=== PATIENT | male | born 1985 | race Hispanic/Latino ===

== ENCOUNTER 2018-10-16 03:39 | Emergency (ER) | payer BC ==
--- NOTE | 2018-10-16 03:53 | ER ---
Nurse's Notes [facility] Name: Jaden Rawls Jr Age: 33 yrs Sex: Male : 1985 Arrival Date: 10/16/2018 Time: 03:43 Bed 17 Private MD: Clifford Yousif R Diagnosis: Laceration of extensor muscle, fascia and tendon of other and unspecified finger at forearm level Presentation: 10/16 03:47 Presenting complaint: Patient states: he was trying to make a sandwich and accidentally aa1 cut his L pinky finger with a knife. Small laceration noted to tip of L pinky with bleeding controlled. Transition of care: patient was not received from another setting of care. Onset of symptoms was October 16, 2018. Risk Assessment: Do you want to hurt yourself or someone else? Patient reports no desire to harm self or others. Initial Sepsis Screen: Does the patient meet any 2 criteria? No. Patient's initial sepsis screen is negative. Does the patient have a suspected source of infection? No. Patient's initial sepsis screen is negative. Care prior to arrival: None. 03:47 Method Of Arrival: Ambulatory aa1 03:47 Acuity: LEAH 4 aa1 Triage Assessment: 03:47 General: Appears in no apparent distress. comfortable, Behavior is calm, cooperative, aa1 appropriate for age. Historical: - Allergies: 03:53 No Known Allergies; aa1 - Home Meds: 03:53 Prozac Oral [Active]; aa1 - PMHx: 03:53 Anxiety; aa1 - PSHx: 03:53 None; aa1 - Immunization history:: Last tetanus immunization: up to date. - Social history:: Smoking status: Patient uses tobacco products, denies chronic smoking, but will smoke occasionally. - Ebola Screening: : No symptoms or risks identified at this time. Screenin:50 Abuse screen: Denies threats or abuse. Denies injuries from another. Nutritional rr5 screening: No deficits noted. Tuberculosis screening: No symptoms or risk factors identified. Fall Risk None identified. Total Valentin Fall Scale indicates No Risk (0-24 pts). Assessment: 03:50 General: Appears in no apparent distress. comfortable, Behavior is calm, cooperative, rr5 appropriate for age. Pain: Complains of pain in palmar aspect of distal phalanx of left little finger Pain does not radiate. Pain currently is 8 out of 10 on a pain scale. Quality of pain is described as aching, Pain began suddenly, Is intermittent. Neuro: Level of Consciousness is awake, alert, obeys commands, Oriented to person, place, time, situation, Appropriate for age. Cardiovascular: Capillary refill < 3 seconds Patient's skin is warm and dry. Respiratory: Airway is patent Respiratory effort is even, unlabored, Respiratory pattern is regular, symmetrical. GI: No signs and/or symptoms were reported involving the gastrointestinal system. : No signs and/or symptoms were reported regarding the genitourinary system. EENT: No signs and/or symptoms were reported regarding the EENT system. Derm: Skin is intact, Skin temperature is warm Wound noted palmar aspect of distal phalanx of left little finger Wound is superficial cut wound. Musculoskeletal: Circulation, motion, and sensation intact. Capillary refill < 3 seconds. 03:50 Injury Description: Laceration sustained to palmar aspect of distal phalanx of left rr5 little finger is clean, superficial, 0.5 to 2.5 cm long, not bleeding. 04:00 Reassessment: Patient appears in no apparent distress at this time. Patient is alert, rr5 oriented x 3, equal unlabored respirations, skin warm/dry/pink. discharge instruction given and explained without complaints made. Vital Signs: 03:47 BP 115 / 79; Pulse 96; Resp 20; Temp 98.5; Pulse Ox 97% on R/A; Weight 68.04 kg; Height aa1 5 ft. 4 in. (162.56 cm); Pain 8/10; 03:47 Body Mass Index 25.75 (68.04 kg, 162.56 cm) aa1 ED Course: 03:43 Patient arrived in ED. am2 03:44 Clifford Yousif MD is Private Physician. am2 03:45 Kenneth Polo MD is Attending Physician. tw4 03:47 Arm band placed on right wrist. aa1 03:50 Rashad Ruth RN is Primary Nurse. rr5 03:50 Patient has correct armband on for positive identification. Bed in low position. Call rr5 light in reach. 03:50 Assist provider with laceration repair on palmar aspect of distal phalanx of left rr5 little finger that was 2.5 cm. or less using Steri-strips. Set up tray. Performed by Kenneth Polo MD Patient tolerated well. 03:51 Triage completed. aa1 03:52 Clifford Yousif MD is Referral Physician. tw4 04:00 Patient did not have IV access during this emergency room visit. rr5 Administered Medications: No medications were administered Outcome: 03:53 Discharge ordered by . tw4 04:00 Discharged to home ambulatory. rr5 04:00 Condition: stable 04:00 Discharge instructions given to patient, Instructed on discharge instructions, follow up and referral plans. Demonstrated understanding of instructions, follow-up care. 04:05 Patient left the ED. rr5 Signatures: Leonela Leal, RN RN aa1 Erna Self am2 Kenneth Polo MD MD tw4 Rashad Ruth RN RN rr5
--- NOTE | 2018-10-16 03:53 | EDPHYS ---
Physician Documentation [facility] Name: Jaden Rawls Jr Age: 33 yrs Sex: Male : 1985 Arrival Date: 10/16/2018 Time: 03:43 Bed 17 Private MD: Clifford Yousif R ED Physician Kenneth Polo HPI: 10/16 03:46 This 33 yrs old Male presents to ER via Unassigned with complaints of Finger tw4 Injury. 03:46 Trauma demographics: County: The injury occurred in [place] Location of Injury: The tw4 injury occurred at home. 03:46 The patient or guardian reports injury, pain. The complaints affect the palmar aspect tw4 of distal phalanx of left little finger. Context: The problem was sustained at home. Onset: The symptoms/episode began/occurred today. Modifying factors: The symptoms are alleviated by pressure to area, the symptoms are aggravated by nothing. The patient has not experienced similar symptoms in the past. Historical: - Allergies: 03:53 No Known Allergies; aa1 - Home Meds: 03:53 Prozac Oral [Active]; aa1 - PMHx: 03:53 Anxiety; aa1 - PSHx: 03:53 None; aa1 - Immunization history:: Last tetanus immunization: up to date. - Social history:: Smoking status: Patient uses tobacco products, denies chronic smoking, but will smoke occasionally. - Ebola Screening: : No symptoms or risks identified at this time. ROS: 03:46 Constitutional: Negative for fever, chills, and weight loss, Eyes: Negative for injury, tw4 pain, redness, and discharge, Cardiovascular: Negative for chest pain, palpitations, and edema, Respiratory: Negative for shortness of breath, cough, wheezing, and pleuritic chest pain, Abdomen/GI: Negative for abdominal pain, nausea, vomiting, diarrhea, and constipation, Back: Negative for injury and pain, Neuro: Negative for headache, weakness, numbness, tingling, and seizure. 03:46 MS/extremity: Positive for injury or acute deformity, pain. Exam: 03:46 Constitutional: This is a well developed, well nourished patient who is awake, alert, tw4 and in no acute distress. Head/Face: Normocephalic, atraumatic. 03:46 Musculoskeletal/extremity: Extremities: noted in the palmar aspect of distal phalanx of left little finger: laceration. Vital Signs: 03:47 BP 115 / 79; Pulse 96; Resp 20; Temp 98.5; Pulse Ox 97% on R/A; Weight 68.04 kg; Height aa1 5 ft. 4 in. (162.56 cm); Pain 8/10; 03:47 Body Mass Index 25.75 (68.04 kg, 162.56 cm) aa1 Laceration: 03:55 Wound Repair of 1cm ( 0.4in ) subcutaneous laceration to palmar aspect of distal tw4 phalanx of left little finger. Distal neuro/vascular/tendon intact. Skin closed with 1 1-0 Adhesive skin closure using simple sutures and sterile technique. Dressed with bandaid. Patient tolerated well. MDM: 03:45 Patient medically screened. tw4 03:57 Differential diagnosis: dislocation, open fracture, closed fracture. Data reviewed: tw4 vital signs, nurses notes. Data interpreted: Pulse oximetry: Interpretation: normal. Counseling: I had a detailed discussion with the patient and/or guardian regarding: the historical points, exam findings, and any diagnostic results supporting the discharge/admit diagnosis. Special discussion: I discussed with the patient/guardian in detail that at this point there is no indication for admission to the hospital. It is understood, however, that if the symptoms persist or worsen the patient needs to return immediately for re-evaluation. Administered Medications: No medications were administered Disposition: 10/16/18 03:53 Discharged to Home. Impression: Laceration of extensor muscle, fascia and tendon of other and unspecified finger at forearm level. - Condition is Stable. - Discharge Instructions: Laceration Care, Adult. - Medication Reconciliation Form, Thank You Letter, Antibiotic Education, Prescription Opioid Use form. - Follow up: Clifford Yousif MD; When: Upon discharge from the Emergency Department; Reason: If symptoms return, Recheck today's complaints, Continuance of care. - Problem is new. - Symptoms have improved. Signatures: Leonela Leal RN RN aa1 Kenneth Polo MD MD tw4 Rashad Ruth RN RN rr5 Corrections: (The following items were deleted from the chart) 04:05 03:53 10/16/2018 03:53 Discharged to Home. Impression: Laceration of extensor muscle, rr5 fascia and tendon of other and unspecified finger at forearm level. Condition is Stable. Forms are Medication Reconciliation Form, Thank You Letter, Antibiotic Education, Prescription Opioid Use. Follow up: Clifford Yousif; When: Upon discharge from the Emergency Department; Reason: If symptoms return, Recheck today's complaints, Continuance of care. Problem is new. Symptoms have improved. tw4
== END 2018-10-16 04:05 | disposition home or self-care (01) ==
LOC: ER 03:39
PROC: 0JQK0ZZ Repair Left Hand Subcutaneous Tissue and Fascia, Open Approach (ICD-10-PCS; principal; 2018-10-16)
DX: S61.215A Laceration without foreign body of left ring finger without damage to nail, initial encounter (principal); X58.XXXA Exposure to other specified factors, initial encounter; Y93.9 Activity, unspecified; Y92.009 Unspecified place in unspecified non-institutional (private) residence as the place of occurrence of the external cause; F41.9 Anxiety disorder, unspecified; Z72.0 Tobacco use
CPT/HCPCS: 99283

== ENCOUNTER 2020-06-25 19:37 | Emergency (ER) | payer BC, SELFPAY ==
--- NOTE | 2020-06-25 20:19 | ER ---
Nurse's Notes [facility] Name: Jaden Rawls Jr Age: 35 yrs Sex: Male : 1985 Arrival Date: 06/25/2020 Time: 19:44 Bed Waiting Private MD: Diagnosis: ED Course: 06/25 19:44 Patient arrived in ED. ag3 20:18 Patient's name was called from ER lobby. No response. Unable to locate patient. Will ca1 disposition as left without being seen by a provider. Administered Medications: No medications were administered Outcome: 20:19 Patient left the ED. ca1 Signatures: May Major ag3 Rox Morrison RN RN ca1
== END 2020-06-25 20:19 | disposition left against medical advice (07) ==
LOC: ER 19:37
DX: R69 Illness, unspecified (principal); Z53.21 Procedure and treatment not carried out due to patient leaving prior to being seen by health care provider

== ENCOUNTER 2020-06-26 12:06 | Emergency (ER) | payer SELFPAY ==
[2020-06-26] MEDS ORDERED: METOCLOPRAMIDE 10 MG/2mL INJ ONE (13:30)
[2020-06-26] MEDS ORDERED: ONDANSETRON 4 MG/2 ML VIAL ONE (13:32)
[2020-06-26] MEDS ORDERED: DIAZEPAM 10 MG/2 ML INJ SYRINGE ONE ×2 (13:32→14:02)
[2020-06-26] MEDS ORDERED: NA CHLORIDE 0.9% 1,000 ML ONE (13:32)
[2020-06-26 13:42] LABS: Absolute Lymphocytes (CBC) 0.6 K/uL (0.7-4.9); Basophils % 0.7 % (0-1.3); Hematocrit 40.2 % (39.6-49.0); Lymphocytes % 7.3 % (15.3-44.8); MPV 7.6 fL (7.6-11.3); RBC Red Blood Cell Count 4.48 M/uL (4.33-5.43)
[2020-06-26 14:00] LABS: Urine Blood Negative (Negative); Urine Glucose Negative (Negative); Urine Protein 2+ (Negative); Urine Specific Gravity >=1.030 (1.005-1.030); Urine pH 5.5 (5.0-7.0)
[2020-06-26 14:08] LABS: Bilirubin Direct 0.2 mg/dL (0-0.2); Bilirubin Total 0.5 mg/dL (0.2-1.0); Potassium 3.7 mmol/L (3.5-5.1)
[2020-06-26 14:43] LABS: Blood Morphology Comment NOT SEEN (NOT SEEN); Platelet Estimate ADEQ; White Blood Cell Scan OK (OK)
[2020-06-26] MEDS ORDERED: PROMETHAZINE INJ 25 MG/ML AMP ONE (17:50)
--- NOTE | 2020-06-26 18:29 | ER ---
Nurse's Notes [facility] Name: Jaden Rawls Jr Age: 35 yrs Sex: Male : 1985 Arrival Date: 06/26/2020 Time: 12:10 Bed 30 Private MD: Diagnosis: Vomiting Presentation: 06/26 12:36 Chief complaint: Patient states: N/V since yesterday, denies abd pain or fever, reports em feeling hot, not tolerating fluids or food. Coronavirus screen: Client denies travel out of the [place] in the last 14 days. Ebola Screen: Patient negative for fever greater than or equal to 101.5 degrees Fahrenheit, and additional compatible Ebola Virus Disease symptoms Patient denies exposure to infectious person. Patient denies travel to an Ebola-affected area in the 21 days before illness onset. No symptoms or risks identified at this time. Initial Sepsis Screen: Does the patient meet any 2 criteria? HR > 90 bpm. Does the patient have a suspected source of infection? No. Patient's initial sepsis screen is negative. Risk Assessment: Do you want to hurt yourself or someone else? Patient reports no desire to harm self or others. Onset of symptoms was June 26, 2020. 12:36 Method Of Arrival: Ambulatory em 12:36 Acuity: LEAH 3 em Historical: - Allergies: 12:38 No Known Allergies; em - PMHx: 12:38 Anxiety; GERD; em - PSHx: 12:38 None; em - Immunization history:: Adult Immunizations up to date. - Social history:: Smoking status: Reported history of juuling and/or vaping. Screenin:02 Abuse screen: Denies threats or abuse. Nutritional screening: No deficits noted. kg Tuberculosis screening: No symptoms or risk factors identified. Fall Risk None identified. Assessment: 13:51 General: Appears uncomfortable, Behavior is calm, cooperative, appropriate for age, kg restless. Pain: Complains of pain in left inner thigh and left upper thigh Pain radiates to left leg Pain currently is 7 out of 10 on a pain scale. at worst was 7 out of 10 on a pain scale. level that patient reports is acceptable is 5 out of 10 on a pain scale. Quality of pain is described as sharp, shooting. 14:01 Neuro: No deficits noted. Cardiovascular: No deficits noted. Respiratory: No deficits kg noted. GI: Pt is actively vomiting clear fluid, Reports nausea, vomiting. : No deficits noted. EENT: No deficits noted. Derm: No deficits noted. Musculoskeletal: No deficits noted. 15:00 Reassessment: Patient appears in no apparent distress at this time. Patient and/or hb family updated on plan of care and expected duration. Pain level reassessed. Patient is alert, oriented x 3, equal unlabored respirations, skin warm/dry/pink. 16:00 Reassessment: Patient appears in no apparent distress at this time. Patient and/or hb family updated on plan of care and expected duration. Pain level reassessed. Patient is alert, oriented x 3, equal unlabored respirations, skin warm/dry/pink. 16:31 Reassessment: Pt drank two glasses of water and ate a popsicle and tolerated well with kg no complaints.. 17:08 Reassessment: Pt called out stating that he is getting nauseated again. Provider kg notifed. Vital Signs: 12:36 BP 119 / 101; Pulse 109; Resp 20; Temp 99.0(O); Pulse Ox 98% on R/A; Weight 79.38 kg; em Height 5 ft. 4 in. (162.56 cm); Pain 0/10; 14:45 BP 136 / 94; Pulse 91; Resp 18; Pulse Ox 100% ; kg 15:45 BP 139 / 91; Pulse 78; Resp 18; Pulse Ox 100% on R/A; kg 16:20 BP 135 / 89; Pulse 105; Resp 17; Pulse Ox 97% on R/A; hb 17:10 BP 138 / 99; Pulse 88; Resp 18; Pulse Ox 100% ; kg 18:54 BP 139 / 92; Pulse 83; Resp 18; Pulse Ox 98% on R/A; kg 12:36 Body Mass Index 30.04 (79.38 kg, 162.56 cm) em ED Course: 12:10 Patient arrived in ED. mr 12:38 Triage completed. em 12:38 Arm band placed on. em 12:40 Servando Steve PA is PHCP. [facility] 12:40 Real Chairez MD is Attending Physician. [facility] 12:46 Umm Negro is Primary Nurse. kg 13:38 ETOH Level Sent. kg 13:38 Liver (Hepatic) Function Sent. kg 13:45 CBC with Automated Diff Sent. kg 13:45 Basic Metabolic Panel Sent. kg 13:47 Basic Metabolic Panel Sent. kg 13:47 CBC with Diff Sent. kg 13:47 Hepatic Function Sent. kg 14:03 Patient has correct armband on for positive identification. Bed in low position. Call kg light in reach. Side rails up X2. 18:54 No provider procedures requiring assistance completed. intact, bleeding controlled, No kg redness/swelling at site. Pressure dressing applied. Administered Medications: 13:45 Drug: Reglan (metoCLOPramide) 20 mg Route: IVP; Site: left antecubital; kg 14:28 Follow up: Response: No adverse reaction; Marked relief of symptoms kg 13:45 Drug: Zofran (Ondansetron) 4 mg Route: IVP; Site: left antecubital; kg 14:27 Follow up: Response: No adverse reaction; Marked relief of symptoms kg 13:45 Drug: Valium (diazepam) 5 mg Route: IVP; Site: left antecubital; kg 14:27 Follow up: Response: No adverse reaction; Marked relief of symptoms kg 15:47 Follow up: Response: No adverse reaction; Marked relief of symptoms kg 13:46 Drug: NS 0.9% 1000 ml Route: IV; Rate: 1 bolus; Site: left antecubital; kg 14:28 Follow up: Urine output 220 ml; Response: No adverse reaction; Marked relief of symptomskg 15:00 Follow up: IV Status: Completed infusion; IV Intake: 1000ml kg 17:40 Drug: Promethazine 12.5 mg Route: IVP; Site: left antecubital; kg 18:30 Follow up: Response: No adverse reaction; Adverse reaction, Physician notified kg Intake: 15:00 IV: 1000ml; Total: 1000ml. kg Output: 14:28 Urine: 220ml; Total: 220ml. kg Outcome: 18:29 Discharge ordered by MD. summers 18:54 Discharged to home kg 18:54 Condition: improved 18:54 Discharge instructions given to patient, Instructed on discharge instructions, follow up and referral plans. Demonstrated understanding of instructions, follow-up care, medications, Prescriptions given X 2. 18:56 Patient left the ED. kg Signatures: Servando Steve PA PA jmm Rivera, Mary mr Munoz, Edgar, RN RN Ave Oliveira RN RN Umm Ladd kg
--- NOTE | 2020-06-26 18:29 | EDPHYS ---
Physician Documentation [facility] Name: Jaden Rawls Jr Age: 35 yrs Sex: Male : 1985 Arrival Date: 06/26/2020 Time: 12:10 Bed 30 Private MD: ED Physician Real Chairez HPI: 06/26 12:41 This 35 yrs old Male presents to ER via Ambulatory with complaints of Vomiting.jmm 12:41 The patient presents to the emergency department with nausea, vomiting, abdominal pain. jmm Onset: The symptoms/episode began/occurred acutely, 1 day(s) ago. Possible causes: etoh. The symptoms are aggravated by nothing. The symptoms are alleviated by nothing. Associated signs and symptoms: Pertinent positives: abdominal pain, Pertinent negatives: diarrhea. This is a 35 year old male with a history of anxiety, GERD that presents to the ED with complaints of vomiting, which he attributes to heavy drinking. Complains of abdominal pain when vomiting. Denies diarrhea. . Historical: - Allergies: 12:38 No Known Allergies; em - PMHx: 12:38 Anxiety; GERD; em - PSHx: 12:38 None; em - Immunization history:: Adult Immunizations up to date. - Social history:: Smoking status: Reported history of juuling and/or vaping. ROS: 12:41 Constitutional: Negative for fever, chills, and weight loss, Cardiovascular: Negative jmm for chest pain, palpitations, and edema, Respiratory: Negative for shortness of breath, cough, wheezing, and pleuritic chest pain. 12:41 Abdomen/GI: Positive for abdominal pain, vomiting. 12:41 All other systems are negative. Exam: 12:41 Constitutional: This is a well developed, well nourished patient who is awake, alert, jmm and in no acute distress. Head/Face: atraumatic. Eyes: EOMI, no conjunctival erythema appreciated ENT: Moist Mucus Membranes Neck: Trachea midline, Supple Chest/axilla: Normal chest wall appearance and motion. Cardiovascular: Regular rate and rhythm. No edema appreciated Respiratory: Normal respirations, no respiratory distress appreciated 12:41 Back: Normal ROM Skin: General appearance color normal MS/ Extremity: Moves all extremities, no obvious deformities appreciated, no edema noted to the lower extremities Neuro: Awake and alert, normal gait Psych: Behavior is normal, Mood is normal, Patient is cooperative and pleasant 12:41 Abdomen/GI: Inspection: abdomen appears normal, Bowel sounds: normal, Palpation: nontender, mild abdominal tenderness, in all quadrants. Vital Signs: 12:36 BP 119 / 101; Pulse 109; Resp 20; Temp 99.0(O); Pulse Ox 98% on R/A; Weight 79.38 kg; em Height 5 ft. 4 in. (162.56 cm); Pain 0/10; 14:45 BP 136 / 94; Pulse 91; Resp 18; Pulse Ox 100% ; kg 15:45 BP 139 / 91; Pulse 78; Resp 18; Pulse Ox 100% on R/A; kg 16:20 BP 135 / 89; Pulse 105; Resp 17; Pulse Ox 97% on R/A; hb 17:10 BP 138 / 99; Pulse 88; Resp 18; Pulse Ox 100% ; kg 18:54 BP 139 / 92; Pulse 83; Resp 18; Pulse Ox 98% on R/A; kg 12:36 Body Mass Index 30.04 (79.38 kg, 162.56 cm) em MDM: 12:44 Patient medically screened. [facility] 18:28 Data reviewed: vital signs, nurses notes. Counseling: I had a detailed discussion with [facility] the patient and/or guardian regarding: the historical points, exam findings, and any diagnostic results supporting the discharge/admit diagnosis, lab results, the need for outpatient follow up, to return to the emergency department if symptoms worsen or persist or if there are any questions or concerns that arise at home. 18:28 ED course: Vomiting relieved in the ED. Patient's abdomen non tender to palpation on [facility] reevaluation. Patient states feeling much better. Patient understood and agrees with the plan of care. . 06/26 12:41 Order name: Basic Metabolic Panel [facility] 06/26 12:41 Order name: CBC with Diff [facility] 06/26 12:41 Order name: Hepatic Function [facility] 06/26 12:41 Order name: Lipase; Complete Time: 14:21 [facility] 06/26 12:42 Order name: Basic Metabolic Panel; Complete Time: 14:21 [facility] 06/26 12:42 Order name: CBC with Automated Diff [facility] 06/26 12:42 Order name: Liver (Hepatic) Function; Complete Time: 14:21 EDKS 06/26 12:45 Order name: ETOH Level; Complete Time: 14:21 [facility] 06/26 14:00 Order name: Urine Dipstick-Ancillary; Complete Time: 14:03 [facility] 06/26 14:43 Order name: CBC Smear Scan [facility] 06/26 12:41 Order name: IV Saline Lock; Complete Time: 13:47 [facility] 06/26 12:41 Order name: Labs collected and sent; Complete Time: 13:47 [facility] 06/26 12:41 Order name: Urine Dipstick-Ancillary (obtain specimen); Complete Time: 13:46 [facility] 06/26 15:43 Order name: PO challenge; Complete Time: 16:30 jm Administered Medications: 13:45 Drug: Reglan (metoCLOPramide) 20 mg Route: IVP; Site: left antecubital; kg 14:28 Follow up: Response: No adverse reaction; Marked relief of symptoms kg 13:45 Drug: Zofran (Ondansetron) 4 mg Route: IVP; Site: left antecubital; kg 14:27 Follow up: Response: No adverse reaction; Marked relief of symptoms kg 13:45 Drug: Valium (diazepam) 5 mg Route: IVP; Site: left antecubital; kg 14:27 Follow up: Response: No adverse reaction; Marked relief of symptoms kg 15:47 Follow up: Response: No adverse reaction; Marked relief of symptoms kg 13:46 Drug: NS 0.9% 1000 ml Route: IV; Rate: 1 bolus; Site: left antecubital; kg 14:28 Follow up: Urine output 220 ml; Response: No adverse reaction; Marked relief of symptomskg 15:00 Follow up: IV Status: Completed infusion; IV Intake: 1000ml kg 17:40 Drug: Promethazine 12.5 mg Route: IVP; Site: left antecubital; kg 18:30 Follow up: Response: No adverse reaction; Adverse reaction, Physician notified kg Disposition: 06/27 06:20 Co-signature as Attending Physician, Real Chairez MD I agree with the assessment and kdr plan of care. Disposition: 06/26/20 18:29 Discharged to Home. Impression: Vomiting. - Condition is Stable. - Discharge Instructions: Nausea and Vomiting, Adult. - Prescriptions for Pepcid 20 mg Oral Tablet - take 1 tablet by ORAL route every 12 hours for 10 days; 20 tablet. promethazine 25 mg Oral Tablet - take 1 tablet by ORAL route every 6 hours As needed; 30 tablet. - Medication Reconciliation Form, Thank You Letter, Antibiotic Education, Prescription Opioid Use form. - Follow up: Private Physician; When: 2 - 3 days; Reason: Recheck today's complaints, Continuance of care, Re-evaluation by your physician. Signatures: Dispatcher [employer] EDReal Iraheta MD MD kdr Mickail, Joel, PA PA jmm Munoz, Edgar, RN RN Umm Joy kg Corrections: (The following items were deleted from the chart) 06/26 18:56 18:29 06/26/2020 18:29 Discharged to Home. Impression: Vomiting. Condition is Stable. kg Forms are Medication Reconciliation Form, Thank You Letter, Antibiotic Education, Prescription Opioid Use. Follow up: Private Physician; When: 2 - 3 days; Reason: Recheck today's complaints, Continuance of care, Re-evaluation by your physician. kristopher
[2020-06-26 19:22] VITALS: TEMP 99
[2020-06-26 19:28] VITALS: BP 139/92; O2SAT 98
== END 2020-06-26 18:56 | disposition home or self-care (01) ==
LOC: ER 12:06
DX: R11.10 Vomiting, unspecified (principal); R10.9 Unspecified abdominal pain
CPT/HCPCS: 36415; 80048; 80076; 80320; 81003; 83690; 85025; 96361; 96374; 96375; 99283; J2405; J2550; J2765; J3360; J7030

== ENCOUNTER 2020-07-08 20:29 | Emergency (ER) | payer SELFPAY ==
--- NOTE | 2020-07-08 22:42 | EDPHYS ---
Physician Documentation [facility] Name: Jaden Rawls Jr Age: 35 yrs Sex: Male : 1985 Arrival Date: 07/08/2020 Time: 21:05 Bed 30 Private MD: ED Physician Fidel Sawyer HPI: 07/08 22:39 This 35 yrs old Male presents to ER via Ambulatory with complaints of Leg Pain.jmm 22:39 The patient presents with pain. Onset: The symptoms/episode began/occurred gradually, 3 jmm year(s) ago. Modifying factors: The symptoms are alleviated by nothing. the symptoms are aggravated by nothing. Associated signs and symptoms: Pertinent negatives fever. This is a 35 year old male with a history of GERD, anxiety that presents to the ED with complaints of left leg pain beginning approx 3 years ago. Patient states recently going to a orthopedic surgeon whom injected the area with little relief of pain. Patient is also anxious. . Historical: - Allergies: 21:22 No Known Allergies; ca1 - Home Meds: 21:22 None [Active]; ca1 - PMHx: 21:22 GERD; Anxiety; ca1 - PSHx: 21:22 None; ca1 - Immunization history:: Client reports having NOT received the Covid vaccine. Flu vaccine is not up to date. - Social history:: Smoking status: Reported history of juuling and/or vaping. ROS: 22:39 Constitutional: Negative for fever, chills, and weight loss, Cardiovascular: Negative jmm for chest pain, palpitations, and edema, Respiratory: Negative for shortness of breath, cough, wheezing, and pleuritic chest pain. 22:39 MS/extremity: Positive for pain. 22:39 All other systems are negative. Exam: 22:39 Constitutional: This is a well developed, well nourished patient who is awake, alert, jmm and in no acute distress. Head/Face: atraumatic. Eyes: EOMI, no conjunctival erythema appreciated ENT: Moist Mucus Membranes Neck: Trachea midline, Supple Chest/axilla: Normal chest wall appearance and motion. Cardiovascular: Regular rate and rhythm. No edema appreciated Respiratory: Normal respirations, no respiratory distress appreciated Abdomen/GI: Non distended, soft Back: Normal ROM Skin: General appearance color normal MS/ Extremity: Moves all extremities, no obvious deformities appreciated, no edema noted to the lower extremities Neuro: Awake and alert, normal gait Psych: Behavior is normal, Mood is normal, Patient is cooperative and pleasant Vital Signs: 21:19 BP 117 / 81; Pulse 79; Resp 16 S; Temp 97.1; Pulse Ox 99% ; Weight 83.91 kg (R); Height ca1 5 ft. 4 in. (162.56 cm) (R); Pain 8/10; 21:19 Body Mass Index 31.75 (83.91 kg, 162.56 cm) ca1 MDM: 22:04 Patient medically screened. [facility] 22:41 Data reviewed: vital signs, nurses notes. Counseling: I had a detailed discussion with kristopher the patient and/or guardian regarding: the historical points, exam findings, and any diagnostic results supporting the discharge/admit diagnosis, the need for outpatient follow up, to return to the emergency department if symptoms worsen or persist or if there are any questions or concerns that arise at home. Refusal of service: The patient/guardian displays adequate decision making capability and despite a detailed discussion of alternatives, benefits, risks, and consequences refuses: all X-rays. Administered Medications: 22:40 Drug: Flexeril (cyclobenzaprine) 10 mg Route: PO; zb 22:49 Follow up: Response: Medication administered at discharge. [email or web address] Disposition: 07/09 06:52 Co-signature as Attending Physician, Fidel Sawyer MD I agree with the assessment and [facility] plan of care. Disposition: 07/08/20 22:41 Discharged to Home. Impression: Pain in left leg. - Condition is Stable. - Discharge Instructions: Musculoskeletal Pain. - Prescriptions for orphenadrine citrate 100 mg Oral Tablet Sustained Release - take 1 tablet by ORAL route 2 times per day As needed; 20 tablet. - Medication Reconciliation Form, Thank You Letter, Antibiotic Education, Prescription Opioid Use form. - Follow up: Shadi Mari MD; When: 2 - 3 days; Reason: Recheck today's complaints, Continuance of care, Re-evaluation by your physician. Follow up: Claude Elias DO; When: 2 - 3 days; Reason: Recheck today's complaints, Continuance of care, Re-evaluation by your physician. Signatures: Fidel Sawyer MD MD cha Mickail, Joel, PA PA jmm Acob, Cheryl RN Brittany Merino RN RN zb Corrections: (The following items were deleted from the chart) 07/08 22:49 22:41 07/08/2020 22:41 Discharged to Home. Impression: Pain in left leg. Condition is zb Stable. Forms are Medication Reconciliation Form, Thank You Letter, Antibiotic Education, Prescription Opioid Use. Follow up: Dr. Shadi Mari; When: 2 - 3 days; Reason: Recheck today's complaints, Continuance of care, Re-evaluation by your physician. Follow up: Claude Elias; When: 2 - 3 days; Reason: Recheck today's complaints, Continuance of care, Re-evaluation by your physician. kristopher
--- NOTE | 2020-07-08 22:42 | ER ---
Nurse's Notes [facility] Name: Jaden Rawls Jr Age: 35 yrs Sex: Male : 1985 Arrival Date: 07/08/2020 Time: 21:05 Bed 30 Private MD: Diagnosis: Pain in left leg Presentation: 07/08 21:19 Chief complaint: Patient states: Here for the same thing as last week. I feel ca1 dehydrated, I am dry heaving, I am hurting on my L groin and the back of my L leg, I am also having real high anxiety right now. Coronavirus screen: Client denies travel out of the [place] in the last 14 days. At this time, the client does not indicate any symptoms associated with coronavirus-19. Ebola Screen: Patient negative for fever greater than or equal to 101.5 degrees Fahrenheit, and additional compatible Ebola Virus Disease symptoms Patient denies exposure to infectious person. Patient denies travel to an Ebola-affected area in the 21 days before illness onset. No symptoms or risks identified at this time. Initial Sepsis Screen: Does the patient meet any 2 criteria? No. Patient's initial sepsis screen is negative. Does the patient have a suspected source of infection? No. Patient's initial sepsis screen is negative. Risk Assessment: Do you want to hurt yourself or someone else? Patient reports no desire to harm self or others. Onset of symptoms was July 08, 2020. 21:19 Method Of Arrival: Ambulatory ca1 21:19 Acuity: LEAH 3 ca1 Triage Assessment: 22:44 General: Behavior is anxious. zb Historical: - Allergies: 21:22 No Known Allergies; ca1 - Home Meds: 21:22 None [Active]; ca1 - PMHx: 21:22 GERD; Anxiety; ca1 - PSHx: 21:22 None; ca1 - Immunization history:: Client reports having NOT received the Covid vaccine. Flu vaccine is not up to date. - Social history:: Smoking status: Reported history of juuling and/or vaping. Screenin:30 Abuse screen: Denies threats or abuse. Denies injuries from another. Nutritional zb screening: No deficits noted. Tuberculosis screening: No symptoms or risk factors identified. Fall Risk None identified. Assessment: 22:31 General: Appears in no apparent distress. Pain: Complains of pain in left femoral area, zb left inguinal area and left leg. Neuro: Level of Consciousness is awake, alert, obeys commands, Oriented to person, place, time, situation. Cardiovascular: Patient's skin is warm and dry. Respiratory: Airway is patent Respiratory effort is even, unlabored, Respiratory pattern is regular, symmetrical. GI: No deficits noted. : No deficits noted. EENT: No deficits noted. Derm: Skin is intact, is healthy with good turgor, Skin is dry, Skin is normal. Musculoskeletal: Range of motion: intact in all extremities. 22:31 Reassessment: patient refused to allow nurse to take vitals. ECP made aware. zb 22:48 Reassessment: patient d/c instructions given. no questions at this time. gait even and zb steady upon discharge. Vital Signs: 21:19 BP 117 / 81; Pulse 79; Resp 16 S; Temp 97.1; Pulse Ox 99% ; Weight 83.91 kg (R); Height ca1 5 ft. 4 in. (162.56 cm) (R); Pain 8/10; 21:19 Body Mass Index 31.75 (83.91 kg, 162.56 cm) ca1 ED Course: 21:05 Patient arrived in ED. ag3 21:21 Triage completed. ca1 21:22 Arm band placed on right wrist. ca1 21:56 Servando Steve PA is PHCP. jmm 21:56 Fidel Sawyer MD is Attending Physician. jmm 22:19 Brittany Tomas, RN is Primary Nurse. zb 22:31 Patient has correct armband on for positive identification. Door closed. Noise zb minimized. 22:41 Shadi Mari MD is Referral Physician. jmm 22:41 Claude Elias DO is Referral Physician. jmm 22:44 No provider procedures requiring assistance completed. Patient did not have IV access zb during this emergency room visit. Administered Medications: 22:40 Drug: Flexeril (cyclobenzaprine) 10 mg Route: PO; zb 22:49 Follow up: Response: Medication administered at discharge. zb Outcome: 22:41 Discharge ordered by . jmm 22:44 Discharged to home ambulatory. zb 22:44 Condition: stable 22:44 Discharge instructions given to patient, Instructed on discharge instructions, follow up and referral plans. medication usage, Demonstrated understanding of instructions, follow-up care, medications, Prescriptions given X 1. 22:49 Patient left the ED. jimmy Signatures: Servando Steve PA PA jmm Gomez, Alice ag3 Rox Morrison, RN RN ca1 Brittany Tomas RN RN jimmy
[2020-07-08] MEDS ORDERED: CYCLOBENZAPRINE 10 MG TAB ONE (23:05)
[2020-07-09 00:30] VITALS: BP 117/81; TEMP 97.1; O2SAT 99
== END 2020-07-08 22:49 | disposition home or self-care (01) ==
LOC: ER 20:29
DX: M79.605 Pain in left leg (principal)
CPT/HCPCS: 99283